=== PATIENT | female | born 1975 | race Caucasian/White ===

== ENCOUNTER 2018-03-21 01:54 | Emergency (ER) | payer MEDICAID ==
[2018-03-21] MEDS ORDERED: Morphine Sulfate 2 mg/mL 1mL Syr IM STA (02:11)
[2018-03-21] MEDS ORDERED: Morphine Sulfate 2 mg/mL 1mL Syr ONE (02:15)
--- NOTE | 2018-03-21 02:59 | ED Physician Chart ---
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 Pain, A/N/V/D/C, fever, chills, or urinary s/s; pt's last tetanus shot: < 5 years; UTD; LNMP: 03/13/18; pt denies Allergies:: Allergies Allergy/AdvReac Type Severity Reaction Status Date / Time No Known Allergies Allergy Verified 03/21/18 02:02 Vitals:: Vital Signs - 8 hr 03/21/18 02:02 Temp 98.0 F HR 110 RR 20 BP 170/93 O2 Sat % 97 Historian:: Patient, Family Member Review:: Nurse's Note Reviewed ED Review of Systems - Review of Systems General/Constitutional: No fever, No chills, No weight loss, No weakness, No diaphoresis, No edema, No loss of appetite Skin: No skin lesions, No rash, No bruising Head: No headache, No light-headedness Eyes: No loss of vision, No pain, No diplopia ENT: No earache, No nasal drainage, No sore throat, No tinnitus Neck: No neck pain, No swelling, No thyromegaly, No stiffness, No mass noted Cardio Vascular: No chest pain, No palpitations, No PND, No orthopnea, No edema Pulmonary: No SOB, No cough, No sputum, No wheezing GI: No nausea, No vomiting, No diarrhea, No pain, No melena, No hematochezia, No constipation, No hematemesis G/U: No dysuria, No frequency, No hematuria, No nacturia Syrup Blender: No vaginal discharge, No abnormal vaginal bleed, No contraction Musculoskeletal: Bone or joint pain, No back pain, Muscle pain Endocrine: No polyuria, No polydipsia Psychiatric: No prior psych history, No depression, No anxiety, No suicidal ideation, No homicidal ideation, No auditory hallucination, No visual hallucination Hematopoietic: No bruising, No lymphadenopathy Allergic/Immuno: No urticaria, No angioedema Neurological: No syncope, No focal symptoms, No weakness, No paresthesia, No headache, No seizure, No dizziness, No confusion, No vertigo ED Past Medical History - Past Medical History Obtainable: Yes Past Medical History: No significant medical hx Family History: HTN Social History: Non Smoker, Alcohol, No Drug Use, , Employed Surgical History: None Psychiatricy History: None Medication: Reviewed Family Medical History - Family Member Mother History Unknown: Yes ED Physical Exam - Physical Examination General/Constitutional: Awake, Well-developed, well-nourished, Alert, No distress, GCS 15, Non-toxic appearing, Ambulatory Head: Atraumatic Eyes: Lids, conjuctiva normal, PERRL, EOMI Skin: Nl inspection, No rash, No skin lesions, No ecchymosis, Well hydrated, No lymphadenopathy ENMT: External ears, nose nl, TM canals nl, Nasal exam nl, Lips, teeth, gums nl , Oropharynx nl, Tonsils nl Neck: Nontender, Full ROM w/o pain, No JVD, No nuchal rigidity, No bruit, No mass, No stridor Other Neck comments:: supple; no meningeal signs; no cervical tenderness; no bruits Respiratory: Nl effort/Exclusion, Clear to Auscultation, No Wheeze/Rhonchi/Rales Cardio Vascular: RRR, No murmur, gallop, rubs, NL S1 S2, Carotid/Femoral/Distal pulses equal bilaterally GI: No tenderness/rebounding/guarding, No organomegaly, No hernia, Normal BS's, Nondistended, No mass/bruits, No McBurney tenderness Other GI comments:: no pulsatile masses : No CVA tenderness Extremities: No tenderness or effusion, Full ROM, normal strength in all extremities, No edema, Normal digits & nails Other Extremities comments:: Left Ankle/Left Foot/Left Tibia/Fibula/Left Knee tenderness with no loss of ROMs ; no cellulitis; no wounds; DTRs: 2+ bilaterally; Gait: WNL; no ligament instability; good motor, tendon, and sensory functions; good NV functions Neuro/Psych: Alert/oriented, DTR's symmetric, Normal sensory exam, Normal motor strength, Judgement/insight normal, Mood normal, Normal gait, No focal deficits Other Neuro/Psych comments:: no focal signs Misc: Normal back, No paraspinal tenderness ED Labs/Radiology/EKG Results - Lab Results Comments:: pt refused UCG; pt denies - Radiology Results Comments:: ? Hairline DF Fx; no dislocations ED Assessment - Procedures Procedures:: Knee Immobilizer to Left Knee and Left Leg; Splint to Left Ankle and Left Foot; Crutches Informed Consent: Procedure/risk/benefits explained by MD: Yes ED Septic Shock - . Is Septic Shock (SBP<90, OR Lactate>4 mmol\L) present?: No - <6hrs of presentation: Vital Signs: Vital Signs - 8 hr 03/21/18 02:02 Temp 98.0 F HR 110 RR 20 BP 170/93 O2 Sat % 97 ED Reassessment (Disposition) - Reassessment Reassessment:: pt is asymptomatic upon discharge Reassessment Condition:: Improved - Diagnosis Diagnosis:: Dx: Left Ankle Fracture; Sprains and Strains; Left Knee Sprain and Strain; Left Ankle and Left Foot Sprains and Strains; Left Leg Sprains and Strains; LE Injury - Aftercare/Follow up Instructions Aftercare/Follow-Up Instructions:: Counseled pt regarding lab results/diagnosis & need follow up, Refer to Discharge Instructions, Counseled pt & family regarding lab results/diagnosis & need follow up - Patient Disposition Discharge/Transfer:: Home Condition at Disposition:: Stable, Improved (X-Rays Instructions; RTER prn if existing s/s reoccur and/or get worse and/or any other new s/s occur; ACIs given for all above Dx; Refer to Orthopedist/Lab Systems Analyst ANTONIO; F/U with PMD in one day or prn; RTER prn if concerned)
--- NOTE | 2018-03-21 08:49 | Diagnostic Imaging Report ---
Left knee 4 views Indication: Trauma Comparison: Left tib-fib x-rays the same day Findings: There is a large knee effusion. There is also a 1.2 cm calcification seen within the knee joint anterior to the distal femoral condyles. No focal soft tissue swelling. Impression: Large knee effusion. Age indeterminate but possibly chronic 1.2 cm calcification is seen along the anterior knee joint anterior to the distal femoral condyles. Given these findings and history of trauma, consider further assessment with either CT or MRI examination. In the setting of trauma, if clinical symptoms persist and there is continued concern for an occult fracture, follow up exams in 5-7 days is suggested.
--- NOTE | 2018-03-21 08:50 | Diagnostic Imaging Report ---
Left tib-fib 2 views Indication: Trauma Comparison: Left knee and left ankle x-rays the same day Findings: Calcification of the knee joint region is noted. Otherwise no evidence of acute fracture. Note that the distal tibia and fibula are incompletely imaged on this exam. No significant focal soft tissue swelling. Impression: Calcification of the knee joint region. Please refer to knee x-rays the same day for further details Otherwise no evidence of an acute fracture. In the setting of trauma, if clinical symptoms persist and there is continued concern for an occult fracture, follow up exams in 5-7 days is suggested.
--- NOTE | 2018-03-21 08:51 | Diagnostic Imaging Report ---
Left ankle 3 views Indication: Trauma Comparison: Left foot x-rays the same day Findings: Mild degenerative changes are noted. No evidence of acute fracture or dislocation. There is partially visualized soft tissue swelling of the forefoot. Impression: No evidence of an acute fracture. Partially visualized soft tissue swelling of the forefoot. Please refer to foot x-rays the same day for further details. In the setting of trauma, if clinical symptoms persist and there is continued concern for an occult fracture, follow up exams in 5-7 days is suggested.
--- NOTE | 2018-03-21 08:54 | Diagnostic Imaging Report ---
Left foot 3 views Indication: Trauma Comparison: Left ankle x-rays the same day Findings: There is diffuse soft tissue swelling involving the dorsal forefoot. There is also subtle lucency seen along the proximal metaphyseal region of the fourth metatarsal. There may be slight widening between the first and second metatarsal joint with possible tiny calcification adjacent the base of the second metatarsal. Mild degenerative changes are noted. IMPRESSION: Diffuse soft tissue swelling of the dorsal forefoot. There is subtle lucency of the proximal metaphyseal region of the fourth metatarsal. This may be due to a nondisplaced fracture. CT or MRI with further clarify Slight widening of the space between the first and second metatarsal possible punctate calcification seen at the base of the second metatarsal. Injury to the Lisfranc ligament cannot be excluded. Again CT or MRI would further clarify. In the setting of trauma, if clinical symptoms persist and there is continued concern for an occult fracture, follow up exams in 5-7 days is suggested.
== END 2018-03-21 03:00 | disposition home or self-care (01) ==
LOC: ER 01:54
DX: S82.892A Other fracture of left lower leg, initial encounter for closed fracture (principal); S83.92XA Sprain of unspecified site of left knee, initial encounter; S86.912A Strain of unspecified muscle(s) and tendon(s) at lower leg level, left leg, initial encounter; S93.402A Sprain of unspecified ligament of left ankle, initial encounter; S96.912A Strain of unspecified muscle and tendon at ankle and foot level, left foot, initial encounter; X50.1XXA Overexertion from prolonged static or awkward postures, initial encounter; Y93.89 Activity, other specified; Y92.89 Other specified places as the place of occurrence of the external cause; Y99.8 Other external cause status
CPT/HCPCS: 99283; 96372; 29505; 73610; 73564; 73590; 73630; J2270; 73562-TC-LT; Z7502

== ENCOUNTER 2018-05-03 17:31 | Emergency (ER) | payer BC, MEDICAID ==
--- NOTE | 2018-05-03 18:12 | ED Physician Chart ---
ED Chief Complaint/HPI - Patient Information Date Seen:: 05/03/18 Time Seen:: 18:00 Chief Complaint:: left shoulder injury History of Present Illness:: this is a 43 yo female who states that she had a slip and fall at the bank this pm. she now is concerned about the pain in her left shoulder. Allergies:: Allergies Allergy/AdvReac Type Severity Reaction Status Date / Time No Known Allergies Allergy Verified 03/21/18 02:02 Historian:: Patient Review:: Nurse's Note Reviewed, Old Chart Reviewed <Marc Saunders - Last Filed: 05/03/18 18:18> - Patient Information Allergies:: Allergies Allergy/AdvReac Type Severity Reaction Status Date / Time No Known Allergies Allergy Verified 03/21/18 02:02 Vitals:: Vital Signs - 8 hr 05/03/18 05/03/18 18:24 18:28 Temp 98.0 F 98.0 F HR 91 91 RR 22 22 BP 160/97 160/97 O2 Sat % 97 97 <Tiny Collazo - Last Filed: 05/03/18 20:06> ED Review of Systems - Review of Systems General/Constitutional: No fever, No chills, No weight loss, No weakness, No diaphoresis, No edema, No loss of appetite Skin: No skin lesions, No rash, No bruising Head: No headache, No light-headedness Eyes: No loss of vision, No pain, No diplopia ENT: No earache, No nasal drainage, No sore throat, No tinnitus Neck: No neck pain, No swelling, No thyromegaly, No stiffness, No mass noted Cardio Vascular: No chest pain, No palpitations, No PND, No orthopnea, No edema Pulmonary: No SOB, No cough, No sputum, No wheezing GI: No nausea, No vomiting, No diarrhea, No pain, No melena, No hematochezia, No constipation, No hematemesis G/U: No dysuria, No frequency, No hematuria Musculoskeletal: Bone or joint pain (left shoulder pain), No back pain, No muscle pain Endocrine: No polyuria, No polydipsia Psychiatric: No prior psych history, No depression, No anxiety, No suicidal ideation Hematopoietic: No bruising, No lymphadenopathy Allergic/Immuno: No urticaria, No angioedema Neurological: No syncope, No focal symptoms, No weakness, No paresthesia, No headache, No seizure, No dizziness, No confusion, No vertigo <Marc Saunders - Last Filed: 05/03/18 18:18> ED Past Medical History - Past Medical History Obtainable: Yes Past Medical History: No significant medical hx Family History: None Social History: Non Smoker, No Alcohol, No Drug Use, Employed Surgical History: None <Marc Saunders - Last Filed: 05/03/18 18:18> Family Medical History - Family Member Mother History Unknown: Yes <Marc Saunders - Last Filed: 05/03/18 18:18> ED Physical Exam - Physical Examination General/Constitutional: Awake, Well-developed, well-nourished, Alert, No distress, GCS 15, Non-toxic appearing, Ambulatory Head: Atraumatic Eyes: Lids, conjuctiva normal, PERRL, EOMI Skin: Nl inspection, No rash, No skin lesions, No ecchymosis, Well hydrated, No lymphadenopathy ENMT: External ears, nose nl, Nasal exam nl, Lips, teeth, gums nl Neck: Nontender, Full ROM w/o pain, No JVD, No nuchal rigidity, No bruit, No mass, No stridor Respiratory: Nl effort/Exclusion, Clear to Auscultation, No Wheeze/Rhonchi/Rales Cardio Vascular: RRR, No murmur, gallop, rubs, NL S1 S2 GI: No tenderness/rebounding/guarding, No organomegaly, No hernia, Normal BS's, Nondistended, No mass/bruits, No McBurney tenderness : No CVA tenderness Extremities: No tenderness or effusion (right shoulder is painful on range of motion and tender on palpation but not deformed.), Full ROM, normal strength in all extremities, No edema, Normal digits & nails Neuro/Psych: Alert/oriented, DTR's symmetric, Normal sensory exam, Normal motor strength, Judgement/insight normal, Mood normal, Normal gait, No focal deficits Misc: Normal back, No paraspinal tenderness <Marc Saunders - Last Filed: 05/03/18 18:18> ED Assessment - Assessment General Assessment: LT SHOULDER MILD HUMERAL HEAD SUBLUXATION NO FULMINANT DISLOCATION S/P TORADOL IM SLING REST F/U ORTHO AND PMD <Tiny Collazo - Last Filed: 05/03/18 20:06> ED Septic Shock - . Is Septic Shock (SBP<90, OR Lactate>4 mmol\L) present?: No - <6hrs of presentation: Vital Signs: Vital Signs - 8 hr 05/03/18 05/03/18 18:24 18:28 Temp 98.0 F 98.0 F HR 91 91 RR 22 22 BP 160/97 160/97 O2 Sat % 97 97 <Tiny Collazo - Last Filed: 05/03/18 20:06>
--- NOTE | 2018-05-04 08:38 | Diagnostic Imaging Report ---
CT scan left shoulder HISTORY: Pain, trauma Total DLP equals 516 CTDI equals 18.0 Axial sections were obtained through the left shoulder. Additional coronal and sagittal reformatted images are provided. The exam demonstrates mild posterior subluxation of the left humeral head relative to the glenoid processes. No niharika dislocation. Mild chronic irregularity noted along the anterior margin of the humeral head. No fractures are seen. No abnormal pulmonary parenchymal or pleural abnormality seen within the left upper hemithorax. IMPRESSION: 1. Mild posterior subluxation of the humeral head without niharika dislocation. No fractures or other acute abnormalities.
== END 2018-05-03 20:45 | disposition home or self-care (01) ==
LOC: ER 17:31
DX: S43.002A Unspecified subluxation of left shoulder joint, initial encounter (principal); W01.0XXA Fall on same level from slipping, tripping and stumbling without subsequent striking against object, initial encounter; Y93.89 Activity, other specified; Y92.89 Other specified places as the place of occurrence of the external cause; Y99.8 Other external cause status
CPT/HCPCS: 99284; 96372 ×2; 73200; 81025; J1885; Z7502